=== PATIENT | female | born 2000 | race Caucasian/White ===

== ENCOUNTER 2022-06-06 16:00 | Outpatient (RCR) | payer BC, SELFPAY | END 2022-11-04 12:33 | disposition home or self-care (01) | PROVIDERS: PCP Physician Assistant; Visit Provider Physician Assistant | DX: R29.898 Other symptoms and signs involving the musculoskeletal system (principal); M25.552 Pain in left hip; M54.9 Dorsalgia, unspecified; S39.92XD Unspecified injury of lower back, subsequent encounter; M54.6 Pain in thoracic spine; M62.81 Muscle weakness (generalized); M54.2 Cervicalgia; M53.3 Sacrococcygeal disorders, not elsewhere classified; Z51.89 Encounter for other specified aftercare | CPT/HCPCS: 97110; 97140; 97162 ==

== ENCOUNTER 2023-09-09 17:38 | Emergency (ER) | payer BC, SELFPAY ==
[2023-09-09 17:48] VITALS: BP 120/82; PULSE 105; RESP 20; TEMP 36.1; O2SAT 97; BMI 30.1
--- NOTE | 2023-09-09 18:04 | CRLHL7_ITS ---
For Patients: As a result of the Cures Act, medical imaging exams and procedure reports are released immediately into your electronic medical record. You may view this report before your referring provider. If you have questions, please contact your health care provider. INDICATION: Upper respiratory infection. TECHNIQUE: Chest 2 views. COMPARISON: None. FINDINGS: Cardiovascular and mediastinum: Heart size and vasculature are normal in caliber and appearance. Lungs and pleural spaces: Low lung volumes. Mild peribronchial prominence. No sign of infiltrate or mass. No sign of pleural effusion. No pneumothorax. Bones and soft tissues: No significant findings. IMPRESSION: Low lung volumes with mild peribronchial prominence, possibly reactive airway disease or viral pneumonia. No large focal consolidations. Dictated by Javier Greene MD @ 09/09/2023 7:11:40 PM (Electronically Signed)
--- NOTE | 2023-09-09 18:34 | ED_ITS ---
HPI - General Adult General Chief complaint: Cough Stated complaint: shortness of breath Time Seen by Provider: 09/09/23 17:50 Source: patient Mode of arrival: ambulatory Limitations: no limitations History of Present Illness HPI narrative: Patient is a 22-year-old female with no pertinent medical problems presenting to the emergency department for congestion, cough, viral symptoms. She states for the past 6 days the symptoms have been going but now she is having worsening congestion. She also states she feels like there is something stuck in her chest. Will have some pain on deep breath. No history of blood clots but she does have alpha-1 antitrypsin. Has also had intermittent fevers. Has been around several people who have been sick and she thinks some of them have tested positive for flu but is not sure. Denies having headache, abdominal pain, nausea/vomiting, diarrhea, constipation, vision changes, dizziness. She is feeling slightly lightheaded today. No other concerns noted. Related Data Home Medications Medication Instructions Recorded Confirmed levonorgestrel-ethinyl estradiol 1 tab PO DAILY 09/09/23 09/09/23 0.1 mg-20 mcg tablet (Lutera (28)) lorazepam 1 mg tablet 1 mg PO 3XD 09/09/23 09/09/23 methylphenidate HCl 27 mg 27 mg PO DAILY 09/09/23 09/09/23 tablet,extended release 24 hr sertraline 100 mg tablet 300 mg PO DAILY 09/09/23 09/09/23 Review of Systems Status of ROS: Reports: 10 or more systems reviewed and unremarkable except as noted in History and below PFSH PFS Social History Smoking Status: Never smoker How often do you have a drink containing alcohol: never AUDIT-C Alcohol total score: 0 Non-prescribed substance use: denies use Exam Narrative: Exam Narrative: Const: Well-nourished, Well-developed, in mild distress Eyes: PERRL, no conjunctival injection, and symmetrical lids HENT: Atraumatic external nose and ears. Moist mucous membranes. Neck: Symmetric, trachea midline, No thyromegaly. CVS: RRR, No murmurs or gallops. Peripheral pulses 2+ and equal in all extremities RESP: Unlabored respiratory effort. Clear to auscultation bilaterally. GI: Nontender/Nondistended, No rebound or guarding. MSK:Extremities w/o deformity, Normal Active ROM Skin: Warm, Dry. No rashes or lesions. Neuro: Normal Muscle tone, No focal neurological deficits. Psych: Awake, Alert, & Oriented x3. Appropriate mood and affect. Const: Vital Signs, click to edit/add: Vital Signs - 24 hr 09/09/23 17:48 09/09/23 18:58 09/09/23 18:59 Temperature 96.9 F L Pulse Rate 80 76 Pulse Rate [Pulse Oximeter] 105 H Respiratory Rate 20 16 Blood Pressure 117/71 Blood Pressure [Ri ght Upper Arm] 120/82 Pulse Oximetry 97 100 98 Oxygen Delivery Me thod Room Air Room Air 09/09/23 19:00 09/09/23 19:02 Temperature Pulse Rate 82 86 Pulse Rate [Pulse Oximeter] Respiratory Rate 16 Blood Pressure 103/67 Blood Pressure [Ri ght Upper Arm] Pulse Oximetry 97 99 Oxygen Delivery Me thod Room Air Course Vital Signs Vital signs: Initial Vital Signs Temperature 96.9 F L 09/09/23 17:48 Temperature Source Temporal Artery Scan 09/09/23 17:48 Pulse Rate 105 H 09/09/23 17:48 Respiratory Rate 20 09/09/23 17:48 Blood Pressure 120/82 09/09/23 17:48 Blood Pressure Mean 94 09/09/23 17:48 Pulse Oximetry 97 09/09/23 17:48 Oxygen Delivery Method Room Air 09/09/23 17:48 Vital Signs Temperature 96.9 F L 09/09/23 17:48 Pulse Rate 105 H 09/09/23 17:48 Respiratory Rate 20 09/09/23 17:48 Blood Pressure 120/82 09/09/23 17:48 Pulse Oximetry 97 09/09/23 17:48 Oxygen Delivery Method Room Air 09/09/23 17:48 Temperature 96.9 F L 09/09/23 17:48 Pulse Rate 86 09/09/23 19:02 Respiratory Rate 16 09/09/23 19:02 Blood Pressure 103/67 09/09/23 19:02 Pulse Oximetry 99 09/09/23 19:02 Oxygen Delivery Method Room Air 09/09/23 19:02 Medical Decision Making MDM Narrative Medical decision making narrative: The patient is a 22-year-old female presenting to the emergency department for flu-like symptoms. She is having some chest pain with deep breaths and since she is tachycardic she cannot be perced out. Do this a were D-dimer. ABDULLAHI says flu/RSV test also ordered. With her chest discomfort of EKG and troponin were ordered. I have also ordered CBC and BMP. Chest x-ray was ordered. EKG reviewed by myself shows no concerning findings. Lab work returned showing no concerning abnormalities. Troponin within normal limits. She is flu positive so. D-dimer within normal limits. Chest x-ray returned showing no signs of pneumonia or pneumothorax. She is otherwise doing well and symptoms are almost likely secondary to the flu. She is safe for discharge and she agrees with this plan. Lab Data Labs: Lab Results 09/09/23 09/09/23 Range/Units 17:56 18:23 WBC 3.94 L (4.50-11.00) K/uL RBC 4.33 (4.00-5.20) m/uL Hgb 13.1 (12.0-16.0) gm/dL Hct 39.4 (33.0-51.0) % MCV 91 (80-100) fL MCH 30 (26-34) pg MCHC 33 (32-36) gm/dL RDW Coeff of Odalys 12.7 (11.5-15.5) % Plt Count 198 (140-440) K/uL Neut % (Auto) 46.7 (42.0-72.0) % Lymph % (Auto) 40.6 (20-44) % [place] % (Auto) 6.3 (0.0-11.0) % Eos % (Auto) 6.1 (0.0-7.0) % Baso % (Auto) 0.3 (0.0-3.0) % Neut # (Auto) 1.80 (1.7-7.0) K/uL Lymph # (Auto) 1.60 (0.90-2.90) K/uL [place] # (Auto) 0.20 (0.00-0.90) K/UL Eos # (Auto) 0.20 (0.00-0.50) K/uL Baso # (Auto) 0.00 (0.00-0.30) K/uL Abs Immat Gran (auto) 0.00 (0.00-0.30) K/uL Imm/Tot Granulo (auto) 0.0 % D-Dimer Quant (PE/DVT) 0.23 (0.00-0.50) ug/ml Sodium 142 (135-149) mmol/L Potassium 3.4 L (3.6-5.1) mmol/L Chloride 105 (96-114) mmol/L Carbon Dioxide 28 (20-32) mmol/L Anion Gap 9 (7-15) mEq/L BUN 7 (5-24) mg/dL Creatinine 0.6 (0.5-1.5) mg/dL Estimated Creat Clear 122.69 Estimated GFR 131 ml/min Glucose 108 (60-115) mg/dL Calcium 9.1 (8.4-10.6) mg/dL HCG, Qual Negative (Negative) SARS-CoV-2 (PCR) Negative SARS-CoV-2 (Negative) Influenza Type A (PCR) POSITIVE PCR FLU A A (Negative) Influenza Type B (PCR) Negative PCR FLU B (Negative) RSV (PCR) Negative PCR RSV (Negative) POC Troponin I 0.00 L (0.01-0.04) ng/ml Imaging Data Chest x-ray: Radiologist's impression: Low lung volumes with mild peribronchial prominence, possibly reactive airway disease or viral pneumonia. No large focal consolidations. Dictated by Javier Greene MD @ 09/09/2023 7:11:40 PM ECG Data Attestation: I personally reviewed and interpreted this ECG as follows: Prior ECG tracings: not available for review Interpretation: Normal sinus rhythm with a rate of 80 beats per minute, normal intervals, normal axis, no ST or T-wave abnormalities Discharge Plan Discharge Clinical Impression: Influenza Patient Disposition: Home, Self-Care Condition: Stable Instructions: Influenza (DC) Additional Instructions: Take Tylenol and ibuprofen for any fevers. Return to emergency department for new or worsening symptoms. You may have symptoms for a few weeks. Prescriptions: No Action levonorgestrel-ethinyl estrad [Lutera (28)] 0.1-20 mg-mcg tablet 1 tab PO DAILY sertraline 100 mg tablet 300 mg PO DAILY lorazepam 1 mg tablet 1 mg PO 3XD methylphenidate HCl 27 mg tablet extended release 24hr 27 mg PO DAILY Follow Up/Referrals: Magi Clark PA [Primary Care Provider] - Stand Alone Forms: MyHealth Info Instructions
[2023-09-09 18:43] LABS: PCR FLU A POSITIVE PCR FLU A (Negative); PCR FLU B Negative PCR FLU B (Negative); PCR RSV Negative PCR RSV (Negative); SARS PCR* Negative SARS-CoV-2 (Negative)
[2023-09-09 18:44] LABS: Basophils Percent Auto 0.3 % (0.0-3.0); Eosinophils Percent Auto 6.1 % (0.0-7.0); Hematocrit 39.4 % (33.0-51.0); Hemoglobin* 13.1 gm/dL (12.0-16.0); Lymphocytes Percent Auto 40.6 % (20-44); Mean Corpuscular HGB Conc 33 gm/dL (32-36); Mean Corpuscular Hemoglobin 30 pg (26-34); Mean Corpuscular Volume 91 fL (80-100); Monocytes Percent Auto 6.3 % (0.0-11.0); Neutrophils Percent Auto 46.7 % (42.0-72.0); Platelet Count* 198 K/uL (140-440); RDW Coefficient of Variation % 12.7 % (11.5-15.5); Red Blood Count 4.33 m/uL (4.00-5.20); White Blood Count* 3.94 K/uL (4.50-11.00)
[2023-09-09 18:45] LABS: Slide Review Reflex No
[2023-09-09 18:56] LABS: Chloride* 105 mmol/L (96-114); Potassium* 3.4 mmol/L (3.6-5.1); Sodium* 142 mmol/L (135-149)
[2023-09-09 18:58] VITALS: BP 117/71; PULSE 80; RESP 16; O2SAT 100
[2023-09-09 18:59] VITALS: PULSE 76; O2SAT 98
[2023-09-09 18:59] LABS: Anion Gap 9 mEq/L (7-15); Blood Urea Nitrogen* 7 mg/dL (5-24); Calcium* 9.1 mg/dL (8.4-10.6); Carbon Dioxide* 28 mmol/L (20-32); Creatinine* 0.6 mg/dL (0.5-1.5); Est. Creatinine Clearance* 122.69; Estimated Glomerular Filt Rate 131 ml/min; Glucose* 108 mg/dL (60-115)
[2023-09-09 19:00] VITALS: PULSE 82; O2SAT 97
[2023-09-09 19:01] LABS: D Dimer Quantitative* 0.23 ug/ml (0.00-0.50)
[2023-09-09 19:02] VITALS: BP 103/67; PULSE 86; RESP 16; O2SAT 99
[2023-09-09 19:14] LABS: HCG Qualitative Serum* Negative (Negative)
== END 2023-09-09 19:52 | disposition home or self-care (01) ==
PROVIDERS: Emergency Provider Student in an Organized Health Care Education/Training Program; PCP Physician Assistant
DX: J10.1 Influenza due to other identified influenza virus with other respiratory manifestations (principal)
CPT/HCPCS: 36415; 71046; 80048; 84484; 84703; 85025; 85379; 87631; 93005; 99283; 99285